=== PATIENT | female | born 1980 | race Caucasian/White ===

== ENCOUNTER 2017-04-12 13:51 | Emergency (ER) | payer BC ==
--- NOTE | 2017-04-12 14:46 | EDM.PDOC ---
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 She sees a physician in [place] but is recently moved here and is also seen a specialist in [place] whom she saw last 2 weeks ago. According to that specialist she wanted to wait until the patient's Depo shot wore off and she received the Depo shot 2 months ago with her doctor in [place]. At that point she will be reevaluated by the specialist then reevaluated and possibly perform a hysterectomy. According to the patient she has had excessive hormonal instability with her menstrual cycle and they've tried multiple medications. She states that since she has received the Depo she has felt better with her hormonal instability but she is now having much more cramping than she usually has. She has received hydrocodone from her family doctor but is running out and was unable to get a refill. She states she is having vaginal spotting but it is very light and there are no clots and she has no other systemic complaints of fever chills nausea vomiting urinary issues. Patient states she has had a full workup in the past and does not seek that. Review of systems: As per history of present illness and below otherwise all systems reviewed and negative. Past medical history: As per history of present illness and as reviewed below otherwise noncontributory. Surgical history: As per history of present illness and as reviewed below otherwise noncontributory. Social history: No reported history of drug or alcohol abuse. Family history: As per history of present illness and as reviewed below otherwise noncontributory. Physical exam: HEENT: Atraumatic, normocephalic, negative for conjunctival pallor or scleral icterus, mucous membranes moist, throat clear, neck supple, nontender, trachea midline. Lungs: Clear to auscultation, breath sounds equal bilaterally, chest nontender. Heart: S1S2, regular, rate and rhythm no murmurs Abdomen: Soft, nondistended, nontender. NABS Pelvis: Stable nontender. Genitourinary: Deferred. Rectal: Deferred. Extremities: Atraumatic, negative for cords or calf pain. Neurovascular unremarkable. Neuro: Awake, alert, oriented. Cranial nerves II through XII unremarkable. Cerebellum unremarkable. Motor and sensory unremarkable throughout. Exam nonfocal. Diagnostics: [] Therapeutics: [] I discussed with the patient at length and offered labs and ultrasound but the patient is deferring at this time she said she's had all of these testing results and she really just wants to treat her symptoms until she can get back to see her specialist. I told her that I be happy to refill her prescription for several days but that she would have to contact her physician in [place] or [place] to get a longer refill. She is comfortable with this care plan Impression: Chronic pelvic pain Definitive disposition and diagnosis as appropriate pending reevaluation and review of above. Lower Abdomen Pain Score (Numeric/FACES): 3 - Related Data Allergies Allergy/AdvReac Type Severity Reaction Status Date / Time No Known Allergies Allergy Verified 04/12/17 14:11 Past Medical History - Past Health History Medical/Surgical History: Denies Medical/Surgical History - Infectious Disease History Infectious Disease History: Reports: Chicken Pox Social & Family History - Family History Family Medical History: Noncontributory - Tobacco Use Smoking Status *Q: Current Every Day Smoker Years of Tobacco use: 1 Packs/Tins Daily: 0 - Caffeine Use Caffeine Use: Reports: None - Recreational Drug Use Recreational Drug Use: No ED ROS GENERAL - Review of Systems Review Of Systems: ROS reveals no pertinent complaints other than HPI. ED EXAM, GENERAL - Physical Exam Exam: See Below (See dictation) Course - Vital Signs Last Recorded V/S: Last Vital Signs Temp 36.7 C 04/12/17 14:11 Pulse 81 04/12/17 14:11 Resp 16 04/12/17 14:11 BP 130/85 04/12/17 14:11 Pulse Ox 99 04/12/17 14:11 Departure - Departure Time of Disposition: 14:46 Disposition: Home, Self-Care 01 Condition: Good Clinical Impression: Chronic pelvic pain in female - Discharge Information Forms: ED Department Discharge Additional Instructions: The following information is given to patients seen in the emergency department who are being discharged to home. This information is to outline your options for follow-up care. We provide all patients seen in our emergency department with a follow-up referral. The need for follow-up, as well as the timing and circumstances, are variable depending upon the specifics of your emergency department visit. If you don't have a primary care physician on staff, we will provide you with a referral. We always advise you to contact your personal physician following an emergency department visit to inform them of the circumstance of the visit and for follow-up with them and/or the need for any referrals to a consulting specialist. The emergency department will also refer you to a specialist when appropriate. This referral assures that you have the opportunity for followup care with a specialist. All of these measure are taken in an effort to provide you with optimal care, which includes your followup. Under all circumstances we always encourage you to contact your private physician who remains a resource for coordinating your care. When calling for followup care, please make the office aware that this follow-up is from your recent emergency room visit. If for any reason you are refused follow-up, please contact the [facility] emergency department at and ask to speak to the emergency department charge nurse. [facility] Primary care-Women's Health [address] [address] Please continue to follow-up with your physicians in [place] and [place] or connect with one of our physicians here for further care and evaluation. Use medications for pain as needed and return to ER as needed as discussed
[2017-04-12 15:04] VITALS: BP 130/85
== END 2017-04-12 14:57 | disposition home or self-care (01) ==
LOC: MW.ED 13:51
DX: R10.2 Pelvic and perineal pain (principal); G89.29 Other chronic pain; F17.200 Nicotine dependence, unspecified, uncomplicated
CPT/HCPCS: 99283; 99284

== ENCOUNTER 2017-04-21 16:54 | Emergency (ER) | payer BC ==
[2017-04-21] MEDS ORDERED: Ketorolac 30 MG/ML SDV IVPUSH ONE (17:55)
[2017-04-21] MEDS ORDERED: Sodium Chloride 0.9% 10 ML Syringe FLUSH PRN (17:55)
[2017-04-21] MEDS ORDERED: Sodium Chloride 0.9% 2.5 ML Syringe FLUSH PRN (17:55)
[2017-04-21] MEDS ORDERED: HYDROmorphone 2 MG/ML Syringe IVPUSH ONE (17:55)
[2017-04-21] MEDS ORDERED: Sodium Chloride 0.9% 1,000 ML IV ONE (18:01)
--- NOTE | 2017-04-21 18:01 | EDM.PDOC ---
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 I have reviewed her note for her history and nothing significant has changed. According to the patient she received the depo shot with her physician in [place] and that has stabilized a lot of hormonal and behavioral instabilities and her mood swings that have been attributed to her menstrual hormones in the past. Since she has gotten the Depo shot she has had more vaginal spotting and abdominal cramping but she did have some cramping before the Depo. The patient states that she has had the vaginal spotting only since getting the Depo shot and it has been constant. It is never heavy and there is no need to use anything more than a light pad. She says that she has intermittently dealt with some cramping and pain . There are no clots. The patient denies any associated symptomatology such as fevers chills dysuria frequency urgency flank pain or vaginal discharge. She has no issues with her bowels and is normal bowel movements. She has no nausea or vomiting and no chest pain shortness of breath fevers or chills. The patient says that the pain medication that she was taking and that I refilled on her last visit was initially working but now it is not and it seems to be the same exact pain and cramping that she has had which is mid pelvic not localizing right or left. She says that the pain meds are just not working anymore and she's not sure what to do. Due to her current insurance situation she cannot go see a clinic doctor here until it switches over on April 28. She says she can only come to the ER and she is unable to get back to her doctor in [place]. Again the patient states that this is the exact same pain cramping and spotting she has had in the past and there is nothing new about the character or location of the pain just the intensity. She denies any other systemic complaints. Review of systems: As per history of present illness and below otherwise all systems reviewed and negative. Past medical history: As per history of present illness and as reviewed below otherwise noncontributory. Surgical history: As per history of present illness and as reviewed below otherwise noncontributory. Social history: No reported history of drug or alcohol abuse. Family history: As per history of present illness and as reviewed below otherwise noncontributory. Physical exam: Gen.: Well-developed well-nourished female who is nontoxic and speaking clearly. Vital signs of been reviewed by me. HEENT: Atraumatic, normocephalic, negative for conjunctival pallor or scleral icterus, mucous membranes moist, throat clear, neck supple, nontender, trachea midline. Lungs: Clear to auscultation, breath sounds equal bilaterally, chest nontender. Heart: S1S2, regular rate and rhythm no overt murmurs Abdomen: Soft, nondistended, mild tenderness on deep palpation of the suprapubic and pelvic area without localization right or left and there is no rebound or guarding. Negative for masses or hepatosplenomegaly. NABS Pelvis: Stable nontender. Genitourinary: External genitalia are within normal limits and on digital exam there is no shelley blood or discharge noted in the vaginal vault. Cervix has no cervical motion tenderness and the uterus is bulky minimally tender in approximately 6-7 weeks size. There is no adnexal tenderness or fullness appreciated Rectal: Deferred. Extremities: Atraumatic, negative for cords or calf pain. Neurovascular unremarkable. Neuro: Awake, alert, oriented. Cranial nerves II through XII unremarkable. Cerebellum unremarkable. Motor and sensory unremarkable throughout. Exam nonfocal. Diagnostics: CBC CMP UA HCG pelvic ultrasound Therapeutics: IV fluids Toradol dilaudid Impression: [] Definitive disposition and diagnosis as appropriate pending reevaluation and review of above. Lower Abdominal Pain Score (Numeric/FACES): 6 - Related Data Allergies Allergy/AdvReac Type Severity Reaction Status Date / Time No Known Allergies Allergy Verified 04/12/17 14:11 Home Meds: Home Meds ALPRAZolam [Alprazolam ER] 0.5 mg PO Q8HR 04/12/17 [History] FLUoxetine [PROzac] 40 mg PO DAILY 04/12/17 [History] Hydrocodone/Acetaminophen [Hydrocodon-Acetaminophn 10-325] 1 - 2 tab PO Q6H PRN 04/12/17 [History] Past Medical History - Past Health History Medical/Surgical History: Denies Medical/Surgical History - Infectious Disease History Infectious Disease History: Reports: Chicken Pox Social & Family History - Family History Family Medical History: Noncontributory - Tobacco Use Smoking Status *Q: Never Smoker Years of Tobacco use: 1 Packs/Tins Daily: 0 Second Hand Smoke Exposure: No - Caffeine Use Caffeine Use: Reports: Soda - Recreational Drug Use Recreational Drug Use: No ED ROS GENERAL - Review of Systems Review Of Systems: ROS reveals no pertinent complaints other than HPI. ED EXAM, GENERAL - Physical Exam Exam: See Below (See dictation) Course - Vital Signs Last Recorded V/S: Last Vital Signs Temp 36.7 C 04/21/17 17:10 Pulse 95 04/21/17 17:10 Resp 18 04/21/17 17:10 BP 141/89 H 04/21/17 17:10 Pulse Ox 97 04/21/17 17:10 - Orders/Labs/Meds Orders: Active Orders 24 hr Category Date Time Status Pelvis Non OB Comp [US] Stat Exams 04/21/17 17:55 Taken Sodium Chloride 0.9% [Saline Flush] Med 04/21/17 17:55 Active 10 ml FLUSH ASDIRECTED PRN Sodium Chloride 0.9% [Saline Flush] Med 04/21/17 17:55 Active 2.5 ml FLUSH ASDIRECTED PRN Saline Lock Insert [OM.PC] Stat Oth 04/21/17 17:55 Ordered Medication Orders Sodium Chloride (Saline Flush) 10 ml FLUSH ASDIRECTED PRN PRN Reason: Keep Vein Open Sodium Chloride (Saline Flush) 2.5 ml FLUSH ASDIRECTED PRN PRN Reason: Keep Vein Open Labs: Laboratory Tests 04/21/17 04/21/17 04/21/17 Range/Units 17:55 18:04 18:04 WBC 9.96 (4.0-11.0) K/uL RBC 4.14 L (4.30-5.90) M/uL Hgb 13.4 (12.0-16.0) g/dL Hct 40.3 (36.0-46.0) % MCV 97.3 (80.0-98.0) fL MCH 32.4 H (27.0-32.0) pg MCHC 33.3 (31.0-37.0) g/dL RDW Std Deviation 46.2 (28.0-62.0) fl RDW Coeff of Dash 13 (11.0-15.0) % Plt Count 388 (150-400) K/uL MPV 8.90 (7.40-12.00) fL Neut % (Auto) 63.0 (48.0-80.0) % Lymph % (Auto) 25.7 (16.0-40.0) % [place] % (Auto) 9.1 (0.0-15.0) % Eos % (Auto) 1.8 (0.0-7.0) % Baso % (Auto) 0.4 (0.0-1.5) % Neut # (Auto) 6.3 H (1.4-5.7) K/uL Lymph # (Auto) 2.6 H (0.6-2.4) K/uL [place] # (Auto) 0.9 H (0.0-0.8) K/uL Eos # (Auto) 0.2 (0.0-0.7) K/uL Baso # (Auto) 0.0 (0.0-0.1) K/uL Nucleated RBC % 0.0 /100WBC Nucleated RBCs # 0 K/uL Sodium 136 (136-146) mmol/L Potassium 4.1 (3.5-5.1) mmol/L Chloride 107 (98-110) mmol/L Carbon Dioxide 17 L (21-31) mmol/L BUN 22 (6.0-23.0) mg/dL Creatinine 0.9 (0.6-1.5) mg/dL Est Cr Clr Drug Dosing 72.17 mL/min Estimated GFR (MDRD) > 60.0 ml/min Glucose 93 (60-110) mg/dL Calcium 9.0 (8.8-10.8) mg/dL Total Bilirubin 0.5 (0.1-1.5) mg/dL AST 25 (5-40) IU/L ALT 24 (8-54) IU/L Alkaline Phosphatase 57 (40-150) Total Protein 7.8 (6.0-8.0) g/dL Albumin 4.2 (3.5-5.0) g/dL Globulin 3.6 H (2.0-3.5) g/dL Albumin/Globulin Ratio 1.2 L (1.3-2.8) HCG, Qual (NEG) Urine Color YELLOW Urine Appearance CLEAR Urine pH 6.5 (5.0-8.0) Ur Specific [place] 1.020 (1.001-1.035) Urine Protein NEGATIVE (NEGATIVE) mg/dL Urine Glucose (UA) NEGATIVE (NEGATIVE) mg/dL Urine Ketones NEGATIVE (NEGATIVE) mg/dL Urine Occult Blood MODERATE (NEGATIVE) Urine Nitrite NEGATIVE (NEGATIVE) Urine Bilirubin NEGATIVE (NEGATIVE) Urine Urobilinogen 0.2 (<2.0) EU/dL Ur Leukocyte Esterase NEGATIVE (NEGATIVE) Urine RBC 1-2 (0-2/HPF) Urine WBC 0-2 (0-5/HPF) Ur Epithelial Cells FEW (NONE-FEW) Urine Bacteria FEW (NEGATIVE) Urine Mucus LIGHT (NONE-MOD) 04/21/17 Range/Units 18:04 WBC (4.0-11.0) K/uL RBC (4.30-5.90) M/uL Hgb (12.0-16.0) g/dL Hct (36.0-46.0) % MCV (80.0-98.0) fL MCH (27.0-32.0) pg MCHC (31.0-37.0) g/dL RDW Std Deviation (28.0-62.0) fl RDW Coeff of Dash (11.0-15.0) % Plt Count (150-400) K/uL MPV (7.40-12.00) fL Neut % (Auto) (48.0-80.0) % Lymph % (Auto) (16.0-40.0) % [place] % (Auto) (0.0-15.0) % Eos % (Auto) (0.0-7.0) % Baso % (Auto) (0.0-1.5) % Neut # (Auto) (1.4-5.7) K/uL Lymph # (Auto) (0.6-2.4) K/uL [place] # (Auto) (0.0-0.8) K/uL Eos # (Auto) (0.0-0.7) K/uL Baso # (Auto) (0.0-0.1) K/uL Nucleated RBC % /100WBC Nucleated RBCs # K/uL Sodium (136-146) mmol/L Potassium (3.5-5.1) mmol/L Chloride (98-110) mmol/L Carbon Dioxide (21-31) mmol/L BUN (6.0-23.0) mg/dL Creatinine (0.6-1.5) mg/dL Est Cr Clr Drug Dosing mL/min Estimated GFR (MDRD) ml/min Glucose (60-110) mg/dL Calcium (8.8-10.8) mg/dL Total Bilirubin (0.1-1.5) mg/dL AST (5-40) IU/L ALT (8-54) IU/L Alkaline Phosphatase (40-150) Total Protein (6.0-8.0) g/dL Albumin (3.5-5.0) g/dL Globulin (2.0-3.5) g/dL Albumin/Globulin Ratio (1.3-2.8) HCG, Qual NEGATIVE (NEG) Urine Color Urine Appearance Urine pH (5.0-8.0) Ur Specific [place] (1.001-1.035) Urine Protein (NEGATIVE) mg/dL Urine Glucose (UA) (NEGATIVE) mg/dL Urine Ketones (NEGATIVE) mg/dL Urine Occult Blood (NEGATIVE) Urine Nitrite (NEGATIVE) Urine Bilirubin (NEGATIVE) Urine Urobilinogen (<2.0) EU/dL Ur Leukocyte Esterase (NEGATIVE) Urine RBC (0-2/HPF) Urine WBC (0-5/HPF) Ur Epithelial Cells (NONE-FEW) Urine Bacteria (NEGATIVE) Urine Mucus (NONE-MOD) Meds: Medications Generic Name Dose Route Start Last Admin Trade Name Freq PRN Reason Stop Dose Admin Sodium Chloride 10 ml 04/21/17 17:55 Saline Flush FLUSH ASDIRECTED PRN Keep Vein Open Sodium Chloride 2.5 ml 04/21/17 17:55 Saline Flush FLUSH ASDIRECTED PRN Keep Vein Open Discontinued Medications Generic Name Dose Route Start Last Admin Trade Name Freq PRN Reason Stop Dose Admin Hydromorphone HCl 1 mg 04/21/17 17:55 04/21/17 18:23 Dilaudid IVPUSH 04/21/17 17:56 1 mg ONETIME ONE Administration Sodium Chloride 1,000 mls @ 999 mls/hr 04/21/17 18:01 04/21/17 18:22 Normal Saline IV 04/21/17 19:01 999 mls/hr STAT ONE Administration Ketorolac Tromethamine 30 mg 04/21/17 17:55 04/21/17 18:26 Toradol IVPUSH 04/21/17 17:56 30 mg ONETIME ONE Administration Departure - Departure Disposition: Home, Self-Care 01 Condition: Good Clinical Impression: Pelvic pain - Discharge Information Referrals: PCP,None [Primary Care Provider] - Forms: ED Department Discharge Additional Instructions: The following information is given to patients seen in the emergency department who are being discharged to home. This information is to outline your options for follow-up care. We provide all patients seen in our emergency department with a follow-up referral. The need for follow-up, as well as the timing and circumstances, are variable depending upon the specifics of your emergency department visit. If you don't have a primary care physician on staff, we will provide you with a referral. We always advise you to contact your personal physician following an emergency department visit to inform them of the circumstance of the visit and for follow-up with them and/or the need for any referrals to a consulting specialist. The emergency department will also refer you to a specialist when appropriate. This referral assures that you have the opportunity for followup care with a specialist. All of these measure are taken in an effort to provide you with optimal care, which includes your followup. Under all circumstances we always encourage you to contact your private physician who remains a resource for coordinating your care. When calling for followup care, please make the office aware that this follow-up is from your recent emergency room visit. If for any reason you are refused follow-up, please contact the [facility] emergency department at and ask to speak to the emergency department charge nurse. [facility] Primary care-Women's Health [address] [address] [facility] Primary care- Internal Medicine and Family [address] [address] Please try to collect all of your medical records so that you can begin your follow-up here locally or contact her specialist or provider in [place] for further care and evaluation of this problem. Return to ER as needed and as discussed <Jesús Shelley - Last Filed: 04/21/17 19:54> Course - Vital Signs Text/Narrative:: Diagnostic labs were unremarkable as was her pelvic ultrasound IUD was noted discuss with patient need for follow-up with private medical doctor/CORRECTIONAL CASE MANAGER E return as needed as discussed Departure - Departure Time of Disposition: 19:54
[2017-04-21 18:40] LABS: CHLORIDE,CL 107 mmol/L (98-110); SODIUM,NA 136 mmol/L (136-146)
[2017-04-21 20:31] VITALS: BP 130/97
--- NOTE | 2017-04-23 11:35 | US ---
EXAM DATE: 04/21/17 PATIENT'S AGE: 36 Patient: TRUMAN DUFF Facility: [place], [place] Site . Site : [id number] Study: US Pelvis [id number]/24/2017 7:42:31 PM Ordering Physician: Raymond Carmona Final Report: Indication: Cramping and spotting. Findings: Right and left ovary and uterus appear unremarkable on transabdominal imaging. Echogenic IUD in the endometrial cavity. Uterus is 9 x 6 x 4 cm in size. No myometrial mass. Transvaginal scanning performed for better evaluation of adnexum. Small nabothian cyst incidentally noted. Right ovary is 3 x 2 x 2 cm. Physiologic follicles and normal color and spectral Doppler blood flow. Left ovary is 3 x 2 x 2 cm with normal color and spectral Doppler blood flow. No free fluid in the peritoneum. Impression: Negative sonographic evaluation for acute finding. IUD noted. Dictated by Ran Garcia MD @ Apr 21 2017 7:50PM (Electronic Signature) Report Signed by Proxy. NANCY
== END 2017-04-21 20:18 | disposition home or self-care (01) ==
LOC: MW.ED 16:54
DX: R10.2 Pelvic and perineal pain (principal); Z79.899 Other long term (current) drug therapy
CPT/HCPCS: 36415; 76856; 80053; 81001; 84703; 85025; 96361; 96374; 96375; 99284; J1170; J1885; J7040

== ENCOUNTER 2017-05-11 21:49 | Emergency (ER) | payer BC, MEDICAID ==
[2017-05-11] MEDS ORDERED: Sodium Chloride 0.9% 10 ML Syringe FLUSH PRN (22:15)
[2017-05-11] MEDS ORDERED: Sodium Chloride 0.9% 1,000 ML IV ONE (22:15)
[2017-05-11] MEDS ORDERED: Ondansetron 4 MG/2 ML SDV IVPUSH ONE (22:15)
[2017-05-11] MEDS ORDERED: Sodium Chloride 0.9% 2.5 ML Syringe FLUSH PRN (22:15)
[2017-05-11] MEDS ORDERED: HYDROmorphone 2 MG/ML Syringe IVPUSH ONE (22:15)
[2017-05-11] MEDS ORDERED: Ketorolac 30 MG/ML SDV IVPUSH ONE (22:15)
--- NOTE | 2017-05-11 22:20 | EDM.PDOC ---
ED HPI GENERAL MEDICAL PROBLEM - General Chief Complaint: Abdominal Pain Stated Complaint: ABDOMINAL PAIN Time Seen by Provider: 05/11/17 22:01 - History of Present Illness INITIAL COMMENTS - FREE TEXT/NARRATIVE: HISTORY AND PHYSICAL: History of present illness: The patient is a 36-year-old female who is well known to me as I've seen her on April 12 and April 21 of this year for similar symptoms of pelvic cramping and vaginal spotting. The patient has a long history which can be reviewed and one of my prior notes but involves following with a log buyer in [place] as well as a specialist in [place] for which they were trying to manage her more stability which was causing behavioral disturbances. Patient received a double shot which helped to control the hormonal component but then started and triggered pelvic cramping and spotting. That has persisted for over 3 months. On her prior visits with me she initially just wanted pain management and a refill of her pain prescription, Buckeye 10/325, and on the second visit she had an evaluation including labs and a pelvic ultrasound. The pelvic ultrasound revealed no evidence of any abnormalities and only the presence of an IUD. The patient says that the discomfort is similar to her prior 3 months it is not different change or evolve. She has no dysuria frequency but has been having loose stools. She has no fever chills flank pain and no vaginal discharge. She has vaginal spotting but she is not filling a pad and is only using light pads. She has no STD risks and says that her IUD has been in place and she does not want it to be removed. Patient denies any other vaginal discharge. She has no back pain or flank pain. Patient was advised on her prior visits with me that she needed to follow-up and she states she has gotten her appointment with Dr. Shukla at [facility] whom she needs to see prior to getting a referral to gynecology. Her other 2 physicians in [place] in [place] are not available according to her testimony area she has not been able to get any pain medication from them. Review of systems: As per history of present illness and below otherwise all systems reviewed and negative. Past medical history: As per history of present illness and as reviewed below otherwise noncontributory. Surgical history: As per history of present illness and as reviewed below otherwise noncontributory. Social history: No reported history of drug or alcohol abuse. Family history: As per history of present illness and as reviewed below otherwise noncontributory. Physical exam: Gen.: Well-developed well-nourished female who is nontoxic and speaking clearly and easily in the ED. her speech is noted to be very slowed and somewhat delayed at times. There is no smell of alcohol on her breath HEENT: Atraumatic, normocephalic, negative for conjunctival pallor or scleral icterus, mucous membranes moist, throat clear, neck supple, nontender, trachea midline. Lungs: Clear to auscultation, breath sounds equal bilaterally, chest nontender. Heart: S1S2, regular, negative for clicks, rubs, or JVD. Abdomen: Soft, nondistended, bowel sounds are slightly hypoactive and there is no tympany on percussion. There is some mild tenderness in the suprapubic pelvic area with deep palpation without rebound or guarding and does not localize right or left. There is no upper abdominal tenderness. Negative for masses or hepatosplenomegaly. Pelvis: Stable nontender. Genitourinary: Deferred. Patient states she has no STD risks and is not having any unusual vaginal spotting and would like to defer exam at this time Rectal: Deferred. Extremities: Atraumatic, negative for cords or calf pain. Neurovascular unremarkable. Neuro: Awake, alert, oriented. Cranial nerves II through XII unremarkable. Cerebellum unremarkable. Motor and sensory unremarkable throughout. Exam nonfocal. Diagnostics: CBC CMP lactic acid UA urine culture if indicated CT scan of the abdomen and pelvis The pelvic ultrasound performed on April 21 was reviewed by me and revealed no significant findings except for the IUD. Therapeutics: IV fluids Zofran Toradol low-dose Dilaudid Please note the patient has stated to nursing that she has only been taking Motrin for the pain but has been taking in high doses which I will discuss with her Discussed all testing results with the patient and she does admit that she did drink some alcohol this evening to try to self medicate for the pain. The patient says that she has been also having cramps in her legs and other muscles and I discussed with her drinking electrolyte solutions and trying to keep up with her hydration. She does not ask for any narcotics for home but is asking for possibly a muscle relaxer to help with her leg cramps and her uterine cramps. I've offered her Flexeril which she is excepting. I told her to follow- up with Dr. Shukla at [facility] or call [facility] women[facility] clinic as they should be seeing her relatively quickly as an ER follow-up. Impression: Chronic pelvic pain and vaginal bleeding, recent alcohol use Definitive disposition and diagnosis as appropriate pending reevaluation and review of above. Lower Abdominal Pain Score (Numeric/FACES): 7 - Related Data Allergies Allergy/AdvReac Type Severity Reaction Status Date / Time No Known Allergies Allergy Verified 05/11/17 21:57 Home Meds: Home Meds ALPRAZolam [Alprazolam ER] 0.5 mg PO Q8HR 04/12/17 [History] FLUoxetine [PROzac] 40 mg PO DAILY 04/12/17 [History] Hydrocodone/Acetaminophen [Hydrocodon-Acetaminophn 10-325] 1 - 2 tab PO Q6H PRN 04/12/17 [History] Past Medical History - Past Health History Medical/Surgical History: Denies Medical/Surgical History HEENT History: Reports: None Cardiovascular History: Reports: None Respiratory History: Reports: None Gastrointestinal History: Reports: None Genitourinary History: Reports: None NOTEREADER History: Reports: None Musculoskeletal History: Reports: None Neurological History: Reports: None Psychiatric History: Reports: None Endocrine/Metabolic History: Reports: None Dermatologic History: Reports: None - Infectious Disease History Infectious Disease History: Reports: Chicken Pox - Past Surgical History HEENT Surgical History: Reports: None Social & Family History - Family History Family Medical History: Noncontributory - Tobacco Use Smoking Status *Q: Former Smoker Years of Tobacco use: 1 Packs/Tins Daily: 0 Used Tobacco, but Quit: Yes Month Tobacco Last Used: 17 Tobacco Use Comment: E cigarettes-1.5 yrs Second Hand Smoke Exposure: No - Caffeine Use Caffeine Use: Reports: Soda - Recreational Drug Use Recreational Drug Use: No ED ROS GENERAL - Review of Systems Review Of Systems: ROS reveals no pertinent complaints other than HPI. ED EXAM, GENERAL - Physical Exam Exam: See Below (See dictation) Course - Vital Signs Last Recorded V/S: Last Vital Signs Temp 36.4 C 05/11/17 23:37 Pulse 84 05/11/17 23:37 Resp 20 05/11/17 23:37 BP 137/85 05/11/17 23:37 Pulse Ox 99 05/11/17 23:37 - Orders/Labs/Meds Orders: Active Orders 24 hr Category Date Time Status Abdomen Pelvis w Cont [CT] Stat Exams 05/11/17 22:15 Taken Sodium Chloride 0.9% [Saline Flush] Med 05/11/17 22:15 Active 10 ml FLUSH ASDIRECTED PRN Sodium Chloride 0.9% [Saline Flush] Med 05/11/17 22:15 Active 2.5 ml FLUSH ASDIRECTED PRN Saline Lock Insert [OM.PC] Stat Oth 05/11/17 22:14 Ordered Medication Orders Sodium Chloride (Saline Flush) 10 ml FLUSH ASDIRECTED PRN PRN Reason: Keep Vein Open Last Admin: 05/11/17 22:41 Dose: 10 ml Sodium Chloride (Saline Flush) 2.5 ml FLUSH ASDIRECTED PRN PRN Reason: Keep Vein Open Last Admin: 05/11/17 22:42 Dose: 2.5 ml Labs: Laboratory Tests 05/11/17 05/11/17 05/11/17 Range/Units 22:25 22:25 22:25 WBC 7.61 (4.0-11.0) K/uL RBC 3.93 L (4.30-5.90) M/uL Hgb 12.7 (12.0-16.0) g/dL Hct 38.4 (36.0-46.0) % MCV 97.7 (80.0-98.0) fL MCH 32.3 H (27.0-32.0) pg MCHC 33.1 (31.0-37.0) g/dL RDW Std Deviation 46.2 (28.0-62.0) fl RDW Coeff of Dash 13 (11.0-15.0) % Plt Count 358 (150-400) K/uL MPV 8.90 (7.40-12.00) fL Neut % (Auto) 57.9 (48.0-80.0) % Lymph % (Auto) 31.8 (16.0-40.0) % [place] % (Auto) 7.5 (0.0-15.0) % Eos % (Auto) 2.4 (0.0-7.0) % Baso % (Auto) 0.4 (0.0-1.5) % Neut # (Auto) 4.4 (1.4-5.7) K/uL Lymph # (Auto) 2.4 (0.6-2.4) K/uL [place] # (Auto) 0.6 (0.0-0.8) K/uL Eos # (Auto) 0.2 (0.0-0.7) K/uL Baso # (Auto) 0.0 (0.0-0.1) K/uL Nucleated RBC % 0.0 /100WBC Nucleated RBCs # 0 K/uL Lactate 1.2 (0.20-2.00) mmol/L Sodium 141 (136-146) mmol/L Potassium 4.0 (3.5-5.1) mmol/L Chloride 113 H (98-110) mmol/L Carbon Dioxide 20 L (21-31) mmol/L BUN 15 (6.0-23.0) mg/dL Creatinine 0.8 (0.6-1.5) mg/dL Est Cr Clr Drug Dosing 81.16 mL/min Estimated GFR (MDRD) > 60.0 ml/min Glucose 84 (60-110) mg/dL Calcium 8.5 L (8.8-10.8) mg/dL Total Bilirubin 0.4 (0.1-1.5) mg/dL AST 20 (5-40) IU/L ALT 23 (8-54) IU/L Alkaline Phosphatase 48 (40-150) Total Protein 7.5 (6.0-8.0) g/dL Albumin 4.1 (3.5-5.0) g/dL Globulin 3.4 (2.0-3.5) g/dL Albumin/Globulin Ratio 1.2 L (1.3-2.8) Urine Color Urine Appearance Urine pH (5.0-8.0) Ur Specific [place] (1.001-1.035) Urine Protein (NEGATIVE) mg/dL Urine Glucose (UA) (NEGATIVE) mg/dL Urine Ketones (NEGATIVE) mg/dL Urine Occult Blood (NEGATIVE) Urine Nitrite (NEGATIVE) Urine Bilirubin (NEGATIVE) Urine Urobilinogen (<2.0) EU/dL Ur Leukocyte Esterase (NEGATIVE) Urine RBC (0-2/HPF) Urine WBC (0-5/HPF) Ur Epithelial Cells (NONE-FEW) Urine Bacteria (NEGATIVE) Urine Opiates Screen (NEGATIVE) Ur Oxycodone Screen (NEGATIVE) Urine Methadone Screen (NEGATIVE) Ur Barbiturates Screen (NEGATIVE) Ur Phencyclidine Scrn (NEGATIVE) Ur Amphetamine Screen (NEGATIVE) U Methamphetamines Scrn (NEGATIVE) U Benzodiazepines Scrn (NEGATIVE) U Cocaine Metab Screen (NEGATIVE) U Marijuana (THC) Screen (NEGATIVE) Ethyl Alcohol mg/dL 05/11/17 05/11/17 05/11/17 Range/Units 22:25 22:30 22:30 WBC (4.0-11.0) K/uL RBC (4.30-5.90) M/uL Hgb (12.0-16.0) g/dL Hct (36.0-46.0) % MCV (80.0-98.0) fL MCH (27.0-32.0) pg MCHC (31.0-37.0) g/dL RDW Std Deviation (28.0-62.0) fl RDW Coeff of Dash (11.0-15.0) % Plt Count (150-400) K/uL MPV (7.40-12.00) fL Neut % (Auto) (48.0-80.0) % Lymph % (Auto) (16.0-40.0) % [place] % (Auto) (0.0-15.0) % Eos % (Auto) (0.0-7.0) % Baso % (Auto) (0.0-1.5) % Neut # (Auto) (1.4-5.7) K/uL Lymph # (Auto) (0.6-2.4) K/uL [place] # (Auto) (0.0-0.8) K/uL Eos # (Auto) (0.0-0.7) K/uL Baso # (Auto) (0.0-0.1) K/uL Nucleated RBC % /100WBC Nucleated RBCs # K/uL Lactate (0.20-2.00) mmol/L Sodium (136-146) mmol/L Potassium (3.5-5.1) mmol/L Chloride (98-110) mmol/L Carbon Dioxide (21-31) mmol/L BUN (6.0-23.0) mg/dL Creatinine (0.6-1.5) mg/dL Est Cr Clr Drug Dosing mL/min Estimated GFR (MDRD) ml/min Glucose (60-110) mg/dL Calcium (8.8-10.8) mg/dL Total Bilirubin (0.1-1.5) mg/dL AST (5-40) IU/L ALT (8-54) IU/L Alkaline Phosphatase (40-150) Total Protein (6.0-8.0) g/dL Albumin (3.5-5.0) g/dL Globulin (2.0-3.5) g/dL Albumin/Globulin Ratio (1.3-2.8) Urine Color YELLOW Urine Appearance CLEAR Urine pH 5.5 (5.0-8.0) Ur Specific [place] <= 1.005 (1.001-1.035) Urine Protein NEGATIVE (NEGATIVE) mg/dL Urine Glucose (UA) NEGATIVE (NEGATIVE) mg/dL Urine Ketones NEGATIVE (NEGATIVE) mg/dL Urine Occult Blood NEGATIVE (NEGATIVE) Urine Nitrite NEGATIVE (NEGATIVE) Urine Bilirubin NEGATIVE (NEGATIVE) Urine Urobilinogen 0.2 (<2.0) EU/dL Ur Leukocyte Esterase NEGATIVE (NEGATIVE) Urine RBC 0-2 (0-2/HPF) Urine WBC 1-2 (0-5/HPF) Ur Epithelial Cells OCCASIONAL (NONE-FEW) Urine Bacteria FEW (NEGATIVE) Urine Opiates Screen NEGATIVE (NEGATIVE) Ur Oxycodone Screen NEGATIVE (NEGATIVE) Urine Methadone Screen NEGATIVE (NEGATIVE) Ur Barbiturates Screen NEGATIVE (NEGATIVE) Ur Phencyclidine Scrn NEGATIVE (NEGATIVE) Ur Amphetamine Screen NEGATIVE (NEGATIVE) U Methamphetamines Scrn NEGATIVE (NEGATIVE) U Benzodiazepines Scrn NEGATIVE (NEGATIVE) U Cocaine Metab Screen NEGATIVE (NEGATIVE) U Marijuana (THC) Screen NEGATIVE (NEGATIVE) Ethyl Alcohol 205.8 mg/dL Meds: Medications Generic Name Dose Route Start Last Admin Trade Name Freq PRN Reason Stop Dose Admin Sodium Chloride 10 ml 05/11/17 22:15 05/11/17 22:41 Saline Flush FLUSH 10 ml ASDIRECTED PRN Administration Keep Vein Open Sodium Chloride 2.5 ml 05/11/17 22:15 05/11/17 22:42 Saline Flush FLUSH 2.5 ml ASDIRECTED PRN Administration Keep Vein Open Discontinued Medications Generic Name Dose Route Start Last Admin Trade Name Freq PRN Reason Stop Dose Admin Hydromorphone HCl 0.5 mg 05/11/17 22:15 05/11/17 22:40 Dilaudid IVPUSH 05/11/17 22:16 0.5 mg ONETIME ONE Administration Sodium Chloride 1,000 mls @ 999 mls/hr 05/11/17 22:15 05/11/17 22:36 Normal Saline IV 05/11/17 23:15 999 mls/hr STAT ONE Administration Iopamidol 90 ml 05/11/17 23:39 05/11/17 23:39 Isovue-370 (76%) IVPUSH 05/11/17 23:40 90 ml ONETIME STA Administration Ketorolac Tromethamine 30 mg 05/11/17 22:15 05/11/17 22:39 Toradol IVPUSH 05/11/17 22:16 30 mg ONETIME ONE Administration Ondansetron HCl 4 mg 05/11/17 22:15 05/11/17 22:36 Zofran IVPUSH 05/11/17 22:16 4 mg ONETIME ONE Administration Departure - Departure Time of Disposition: 00:26 Disposition: Home, Self-Care 01 Condition: Good Clinical Impression: Chronic pelvic pain in female - Discharge Information Forms: ED Department Discharge Additional Instructions: The following information is given to patients seen in the emergency department who are being discharged to home. This information is to outline your options for follow-up care. We provide all patients seen in our emergency department with a follow-up referral. The need for follow-up, as well as the timing and circumstances, are variable depending upon the specifics of your emergency department visit. If you don't have a primary care physician on staff, we will provide you with a referral. We always advise you to contact your personal physician following an emergency department visit to inform them of the circumstance of the visit and for follow-up with them and/or the need for any referrals to a consulting specialist. The emergency department will also refer you to a specialist when appropriate. This referral assures that you have the opportunity for followup care with a specialist. All of these measure are taken in an effort to provide you with optimal care, which includes your followup. Under all circumstances we always encourage you to contact your private physician who remains a resource for coordinating your care. When calling for followup care, please make the office aware that this follow-up is from your recent emergency room visit. If for any reason you are refused follow-up, please contact the [facility] emergency department at and ask to speak to the emergency department charge nurse. [facility] Primary care- Internal Medicine and Family [address], [place] [address] [facility] Primary care-Women's Health [address] [address] Please call our clinic on Sunday and specifically state that you were in ED patient and need an expedited follow-up appointment as we discussed. Use your ibuprofen that you have the please only take 800 mg every 8 hours to avoid stomach upset and irritation as we discussed. Please fill your prescription for Norflex and take as needed and directed. Return to the ER as discussed - My Orders Last 24 Hours: My Active Orders 05/11/17 22:14 Saline Lock Insert [OM.PC] Stat 05/11/17 22:15 Abdomen Pelvis w Cont [CT] Stat Sodium Chloride 0.9% [Saline Flush] 10 ml FLUSH ASDIRECTED PRN Sodium Chloride 0.9% [Saline Flush] 2.5 ml FLUSH ASDIRECTED PRN - Assessment/Plan Last 24 Hours: My Active Orders 05/11/17 22:14 Saline Lock Insert [OM.PC] Stat 05/11/17 22:15 Abdomen Pelvis w Cont [CT] Stat Sodium Chloride 0.9% [Saline Flush] 10 ml FLUSH ASDIRECTED PRN Sodium Chloride 0.9% [Saline Flush] 2.5 ml FLUSH ASDIRECTED PRN
[2017-05-11 22:59] LABS: CHLORIDE,CL 113 mmol/L (98-110); SODIUM,NA 141 mmol/L (136-146)
[2017-05-11] MEDS ORDERED: Iopamidol 755 Mg/ML 100 ML Bottle IVPUSH STA (23:39)
[2017-05-12 00:38] VITALS: BP 130/65
--- NOTE | 2017-05-14 11:07 | CT ---
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 Site : 1980 Study: CT Abdomen/Pelvis W CHARLES [id number]/14/2017 11:43:17 PM Ordering Physician: Raymond Carmona Final Report: INDICATION: Lower abdominal pain and cramping. TECHNIQUE: CT abdomen and pelvis acquired with i.v. 92 mL Isovue 370. Coronal and sagittal reformats were obtained. COMPARISON: No prior CT study for comparison. FINDINGS: Senior Systems Administrator CT images: Nonobstructive bowel gas pattern. IUD in the central pelvis. Lower chest: Unremarkable. Liver: Unremarkable. Spleen: Unremarkable. Pancreas: Unremarkable. Gallbladder and bile ducts: Unremarkable. Kidneys: Unremarkable. No kidney or ureteral stones and no hydronephrosis seen. Adrenal glands: Unremarkable. GI tract: Unremarkable. The appendix is normal in appearance and size. Vascular: Unremarkable. Lymph nodes: Unremarkable. Miscellaneous: Unremarkable. No pneumoperitoneum is seen. No significant ascites is noted. Pelvic Organs: All IUD in satisfactory position within the endometrial canal. Uterus and adnexal structures unremarkable. Likely dominant right ovarian follicle, measuring 1.4 centimeters. Bones: Unremarkable for age. IMPRESSION: 1. No acute abnormality in the abdomen or pelvis. 2. Normal appendix. Dictated by Abimael Perdue MD @ 05/12/2017 12:00:40 AM Dictated by: Abimael Perdue MD @ 05/12/2017 00:00:50 (Electronic Signature) Report Signed by Proxy. NANCY
== END 2017-05-12 00:35 | disposition home or self-care (01) ==
LOC: MW.ED 21:49
DX: G89.29 Other chronic pain (principal); R10.2 Pelvic and perineal pain; Z79.899 Other long term (current) drug therapy; Z87.891 Personal history of nicotine dependence
CPT/HCPCS: 74177; 80053; 80305; 81001; 83605; 85025; 96361; 96374; 96375; 99284; G0480; J1170; J1885; J2405; J7040; Q9967

== ENCOUNTER 2017-07-12 18:22 | Emergency (ER) | payer MEDICAID ==
[2017-07-12 18:37] VITALS: BP 114/70
--- NOTE | 2017-07-12 18:49 | EDM.PDOC ---
ED HPI GENERAL MEDICAL PROBLEM - General Chief Complaint: ENT Problem Stated Complaint: POSSIBLE STREP THROAT Time Seen by Provider: 07/12/17 18:40 - History of Present Illness INITIAL COMMENTS - FREE TEXT/NARRATIVE: HISTORY AND PHYSICAL: History of present illness: The patient is a 36-year-old female who presents to the ED with a 1-1/2 day history of a sore throat that started yesterday but seemed to worsen today while at work. The patient said she started having a sore throat yesterday with some pain with swallowing and speaking and that seemed to get better last night but then returned again today. She has had no fevers or chills no vomiting or diarrhea but has had some nausea. She has no cough or runny nose no sinus congestion and no ear pain. Review of systems: As per history of present illness and below otherwise all systems reviewed and negative. Past medical history: As per history of present illness and as reviewed below otherwise noncontributory. Surgical history: As per history of present illness and as reviewed below otherwise noncontributory. Social history: No reported history of drug or alcohol abuse. Family history: As per history of present illness and as reviewed below otherwise noncontributory. Physical exam: Gen.: Well-developed well-nourished female who is nontoxic and speaking clearly and easily in the ED without hoarseness or nasal quality to voice. Vital signs reviewed by me. HEENT: Atraumatic, normocephalic, pupils reactive, negative for conjunctival pallor or scleral icterus, mucous membranes moist, throat clear of exudates and there is only minimal posterior oropharyngeal erythema without uvula deviation and no other oropharyngeal swelling, no cervical adenopathy or nuchal rigidity, neck supple, nontender, trachea midline. Lungs: Clear to auscultation, breath sounds equal bilaterally, chest nontender. Heart: S1S2, regular rate and rhythm no overt murmurs Abdomen: Soft, nondistended, nontender. NABS Skin: No evidence of any diaphoresis and normal turgor Genitourinary: Deferred. Rectal: Deferred. Extremities: Atraumatic, negative for cords or calf pain. Neurovascular unremarkable. Neuro: Awake, alert, oriented. Cranial nerves II through XII unremarkable. Cerebellum unremarkable. Motor and sensory unremarkable throughout. Exam nonfocal. Diagnostics: Rapid strep Therapeutics: [] Impression: Pharyngitis Definitive disposition and diagnosis as appropriate pending reevaluation and review of above. Throat Pain Score (Numeric/FACES): 4 - Related Data Allergies Allergy/AdvReac Type Severity Reaction Status Date / Time No Known Allergies Allergy Verified 07/12/17 18:34 Home Meds: Home Meds . [No Known Home Meds] 07/12/17 [History] Past Medical History - Past Health History Medical/Surgical History: Denies Medical/Surgical History HEENT History: Reports: None Cardiovascular History: Reports: None Respiratory History: Reports: None Gastrointestinal History: Reports: None Genitourinary History: Reports: None LEAD CARE MANAGER History: Reports: None Musculoskeletal History: Reports: None Neurological History: Reports: None Psychiatric History: Reports: None Endocrine/Metabolic History: Reports: None Dermatologic History: Reports: None - Infectious Disease History Infectious Disease History: Reports: Chicken Pox - Past Surgical History HEENT Surgical History: Reports: None Social & Family History - Family History Family Medical History: Noncontributory - Tobacco Use Smoking Status *Q: Former Smoker Years of Tobacco use: 1 Packs/Tins Daily: 0 Used Tobacco, but Quit: Yes Month Tobacco Last Used: 17 Second Hand Smoke Exposure: No - Caffeine Use Caffeine Use: Reports: Soda - Recreational Drug Use Recreational Drug Use: No ED ROS GENERAL - Review of Systems Review Of Systems: ROS reveals no pertinent complaints other than HPI. ED EXAM, GENERAL - Physical Exam Exam: See Below (See dictation) Course - Vital Signs Last Recorded V/S: Last Vital Signs Temp 35.8 C 07/12/17 18:34 Pulse 87 07/12/17 18:34 Resp 16 07/12/17 18:34 BP 114/70 07/12/17 18:34 Pulse Ox 97 07/12/17 18:34 - Orders/Labs/Meds Orders: Active Orders 24 hr Category Date Time Status CULTURE STREP A CONFIRMATION [] Stat Lab 07/12/17 18:53 Results STREP SCRN A RAPID W CULT CONF [] Stat Lab 07/12/17 18:53 Results Departure - Departure Time of Disposition: 19:10 Disposition: Home, Self-Care 01 Condition: Good Clinical Impression: Pharyngitis Qualifiers: Pharyngitis/tonsillitis etiology: unspecified etiology Qualified Code(s): J02.9 - Acute pharyngitis, unspecified - Discharge Information Instructions: Pharyngitis, [id number] Referrals: PCP,None [Primary Care Provider] - Forms: ED Department Discharge Additional Instructions: The following information is given to patients seen in the emergency department who are being discharged to home. This information is to outline your options for follow-up care. We provide all patients seen in our emergency department with a follow-up referral. The need for follow-up, as well as the timing and circumstances, are variable depending upon the specifics of your emergency department visit. If you don't have a primary care physician on staff, we will provide you with a referral. We always advise you to contact your personal physician following an emergency department visit to inform them of the circumstance of the visit and for follow-up with them and/or the need for any referrals to a consulting specialist. The emergency department will also refer you to a specialist when appropriate. This referral assures that you have the opportunity for followup care with a specialist. All of these measure are taken in an effort to provide you with optimal care, which includes your followup. Under all circumstances we always encourage you to contact your private physician who remains a resource for coordinating your care. When calling for followup care, please make the office aware that this follow-up is from your recent emergency room visit. If for any reason you are refused follow-up, please contact the [facility] emergency department at and ask to speak to the emergency department charge nurse. [facility] Primary care- [place] [address] Use [id number] Tylenol or ibuprofen for pain and fevers and push hydration. Return to ER as needed and as discussed and please call and follow- up with your provider in the clinic or one of our providers in the next few days for reevaluation and further care - My Orders Last 24 Hours: My Active Orders 07/12/17 18:53 CULTURE STREP A CONFIRMATION [RM] Stat STREP SCRN A RAPID W CULT CONF [RM] Stat - Assessment/Plan Last 24 Hours: My Active Orders 07/12/17 18:53 CULTURE STREP A CONFIRMATION [RM] Stat STREP SCRN A RAPID W CULT CONF [RM] Stat
== END 2017-07-12 19:37 | disposition home or self-care (01) ==
LOC: MW.ED 18:22
DX: J02.9 Acute pharyngitis, unspecified (principal); Z87.891 Personal history of nicotine dependence
CPT/HCPCS: 87081; 87880; 99283